=== PATIENT | male | born 1970 | race Caucasian/White ===

== ENCOUNTER 2019-01-27 20:17 | Emergency (ER) | payer SELFPAY ==
[~2019-01-27] VITALS: Ht 180.3 cm; Wt 99.8 kg
[2019-01-27 20:34] VITALS: Ht 180.3 cm; Wt 99.8 kg
[2019-01-27 22:55] VITALS: BP 148/95
== END 2019-01-27 22:55 | disposition other institution (70) ==
LOC: ED 20:17
DX: Z02.89 Encounter for other administrative examinations (principal)

== ENCOUNTER 2019-01-27 20:17 | Emergency (ER) | payer OTHER | END 2019-01-27 22:55 | disposition other institution (70) | LOC: ED 20:17 | DX: Z02.89 Encounter for other administrative examinations (principal) ==